=== PATIENT | female | born 1990 | race Two or more races ===

== ENCOUNTER 2022-02-17 06:00 | Inpatient (IN) | payer OTHER ==
[~2022-02-17] VITALS: Ht 154.9 cm; Wt 73.5 kg
[2022-02-17 05:40] VITALS: BP 122/79
--- NOTE | 2022-02-17 06:00 | NUR ---
[facility] SWAB OBTAINED AT THIS TIME
--- NOTE | 2022-02-17 07:19 | NUR ---
ADMISSION NOTE PATIENT CAME IN UNIT AROUND 0535 AM. ACCOMPANIED BY 2 EMT PERSONNELS, VIA STRETCHER. PATIENT IS A/OX4. NO S/S OF APPARENT DISTRESS ON ROOM AIR. DENIES PAIN AT THIS TIME. PATIENT WISHES TO BE FULL CODE. NEW ID BAND ON PATIENT. L.AC #20G INTACT. BELONGINGS INVENTORIED AND SIGNED FOR. UP-TO-DATE WITH HER IMMUNIZATIONS. DENIES SMOKING AND ALCOHOL ABUSE. DENIES SI. PATIENT IN FOR ERCP TODAY BEEN NPO SINCE MIDNIGHT, CONSENTS SIGNED. AWAITING FOR DOCTOR'S ORDERS. ENDORSED TO ANI FOR CONTINUITY OF CARE. V/S FOLLOWS: 122/79, HR-63, SATURATION 99% IN ROOM AIR, T-98.2. WT. 162 LBS AND IS 5'1".
--- NOTE | 2022-02-17 07:35 | NUR ---
MS RN NOTES RECEIVED PATIENT AWAKE IN BED. PATIENT IS ALERT AND ORIENTED TIMES 4. NO PAIN NOTED. NO SOB NOTED. NO DISTRESS NOTED. ON ROOM AIR AND TOLERATING WELL. ABLE TO MAKE NEEDS KNOWN. AMBULATORY AND ABLE TO MAKE NEEDS KNOWN. NPO FOR SURGERY OF ERCP THIS MORNING. IV ACCESS ON THE LAC MARY 20 INTACT. ALL NEEDS ATTENDED. ALL SAFETY MEASURES IN PLACE. BED LOCKED I THE LOWEST POSITION. CALL LIGHT AND TABLE IN EASY REACH. SIDE RAILS UP TIMES 2. WILL GRETTA NUE TO MONITOR.
[2022-02-17 08:00] VITALS: BP 115/71
--- NOTE | 2022-02-17 09:35 | NUR ---
RN NOTES PATIENT LEFT UNIT AT 0937 FOR SURGERY.
[2022-02-17] MEDS ORDERED: IOHEXOL 50 ML IV ONE (10:03)
[2022-02-17] MEDS ORDERED: ANESTHESIA TRAY IN PYXIS 1 EA TRAY MC ONE (10:03)
[2022-02-17] MEDS ORDERED: INDOMETHACIN 50 MG SUPP.RECT ONE (10:15)
[2022-02-17] MEDS ORDERED: SCOPOLAMINE PATCH 1 MG/72HR TD ONE ×2 (11:15)
--- NOTE | 2022-02-17 12:00 | NUR ---
RN NOTES PATIENT ARRIVED UNIT AT 1200. NO PAIN NOTED. NO SOB NOTED. NO DISTRESS NOTED. VITAL SIGNS IN NORMAL RANGES, WILL CONTINUE TO MONITOR.
[2022-02-17] MEDS ORDERED: ONDANSETRON HCL/PF 4 MG/2 ML VIAL IVP PRN (15:30)
[2022-02-17] MEDS ORDERED: MENTHOL/CETYLPYRD (CEPACOL) 1 LOZ LOZENGE PO PRN (15:30)
[2022-02-17] MEDS ORDERED: MAGNESIUM HYDROXIDE 30 ML UDC PO PRN (15:30)
[2022-02-17 16:00] VITALS: BP 113/71
[2022-02-17 18:21] LABS: BASOPHILS % (AUTO) 0.4 % (0.0-2.0); HEMATOCRIT 42 % (33-45); HEMOGLOBIN 13.7 g/dL (11.5-14.8); LYMPHOCYTES # (AUTO) 0.6 K/uL (0.8-4.8); LYMPHOCYTES % (AUTO) 10.4 % (20.0-44.0); MEAN CORPUSCULAR HGB CONC 33 g/dl (31.0-36.0); MEAN CORPUSCULAR VOLUME 86 fL (82-100); MONOCYTES # (AUTO) 0.1 K/uL (0.1-1.30); MONOCYTES % (AUTO) 1.7 % (2.0-12.0); NEUTROPHILS % (AUTO) 87.5 % (43.0-81.0); PLATELET COUNT (AUTO) 252 K/uL (150-450); RED BLOOD CELL COUNT(AUTO) 4.85 MIL/uL (4.0-5.2); WHITE BLOOD COUNT (AUTO) 5.7 K/uL (4.3-11.0)
[2022-02-17 18:50] LABS: ALBUMIN 3.2 g/dL (3.4-5.0); BILIRUBIN,TOTAL 3.3 mg/dL (0.2-1.0); CALCIUM, SERUM 8.6 mg/dL (8.5-10.1); CREATININE 0.7 mg/dL (0.6-1.3); POTASSIUM 3.6 mmol/L (3.5-5.1); TOTAL PROTEIN, SERUM 7.9 g/dL (6.4-8.2)
--- NOTE | 2022-02-17 19:30 | NUR ---
MS RN OPENING NOTE RECEIVED PATIENT IN BED WITH 1 VISITOR AT BEDSIDE. A/OX4. NO S/S OF APPARENT DISTRESS. AND DENIES PAIN AT THIS TIME. NO IV FLUIDS RUNNING AT THIS TIME. ORIENTED AND ENCOURAGED WITH THE USE OF CALL LIGHT. SAFETY IN PLACE. WILL CONTINUE WITH PLAN OF CARE FOR PATIENT.
--- NOTE | 2022-02-17 19:45 | NUR ---
MS RN CLOSING NOTES PATIENT AWAKE IN BED. AT BED SIDE.PATIENT IS ALERT AND ORIENTED TIMES 4. NO PAIN NOTED. NO SOB NOTED. NO DISTRESS NOTED. ON ROOM AIR AND TOLERATING WELL. ABLE TO MAKE NEEDS KNOWN. AMBULATORY AND ABLE TO MAKE NEEDS KNOWN. NPO FOR SURGERY TOMORROW. IV ACCESS ON THE LAC MARY 20 INTACT. ALL NEEDS ATTENDED. ALL DUE MEDS GIVEN ORDERED.ALL SAFETY MEASURES IN PLACE. BED LOCKED IN THE LOWEST POSITION. CALL LIGHT AND TABLE IN EASY REACH. SIDE RAILS UP TIMES 2. WILL ENDORSE FOR DIPIKA..
[2022-02-17 20:15] VITALS: BP 108/70
--- NOTE | 2022-02-17 22:40 | NUR ---
RN NOTES DR. TALAVERA CALLED AND GAVE TELEPHONE ORDER FOR THIS PATIENT , PATIENT WILL HAVE LAPAROSCOPIC CHOLECYSTECTOMY POSSIBLE OPEN TOMORROW, ORDER NOTED AND CARRIED OUT
--- NOTE | 2022-02-17 22:51 | NUR ---
MS RN NOTE CONSENT OBTAINED FOR LAP TOVA POSS OPEN, AT THIS TIME.
[2022-02-18 07:02] LABS: BASOPHILS % (AUTO) 0.2 % (0.0-2.0); EOSINOPHILS % (AUTO) 0.7 % (0.0-6.0); HEMATOCRIT 39 % (33-45); HEMOGLOBIN 12.9 g/dL (11.5-14.8); LYMPHOCYTES # (AUTO) 1.4 K/uL (0.8-4.8); LYMPHOCYTES % (AUTO) 20.9 % (20.0-44.0); MEAN CORPUSCULAR HGB CONC 33 g/dl (31.0-36.0); MEAN CORPUSCULAR VOLUME 86 fL (82-100); MONOCYTES # (AUTO) 0.5 K/uL (0.1-1.30); MONOCYTES % (AUTO) 7.5 % (2.0-12.0); NEUTROPHILS # (AUTO) 4.8 K/uL (1.8-8.9); NEUTROPHILS % (AUTO) 70.7 % (43.0-81.0); PLATELET COUNT (AUTO) 234 K/uL (150-450); WHITE BLOOD COUNT (AUTO) 6.8 K/uL (4.3-11.0)
--- NOTE | 2022-02-18 07:30 | NUR ---
MS RN OPENING NOTES: RECEIVED PATIENT IN BED AWAKE, A/OX4. NO S/S OF SOB OR ACUTE DISTRESS AT THE MOMENT, ON RA TOLERATING WELL. PT DENIES PAIN AT THIS TIME. IV ACCESS LAC# 20, SL, PATENT. SAFETY MEASURES IN PLACE, HOB ELEVATED AND LOCKED AT LOWEST POSITION, SIDERAILS UP X2, CALL LIGHT AND TABLE WITHIN REACH, WILL CONTINUE TO MONITOR.
--- NOTE | 2022-02-18 07:34 | NUR ---
MS RN NOTE CLOSING NEEDS ATTENDED. ENDORSED TO JORGE VILLAVICENCIO FOR CONTINUITY OF CARE.
[2022-02-18 07:42] LABS: BILIRUBIN,DIRECT 1.7 mg/dL (0.0-0.2); BILIRUBIN,TOTAL 3.1 mg/dL (0.2-1.0); CALCIUM, SERUM 8.5 mg/dL (8.5-10.1); CREATININE 0.7 mg/dL (0.6-1.3); POTASSIUM 3.3 mmol/L (3.5-5.1); TOTAL PROTEIN, SERUM 7.3 g/dL (6.4-8.2)
[2022-02-18] MEDS: PANTOPRAZOLE 40 MG TABLET.DR PO SCH (08:26)
[2022-02-18 08:27] VITALS: BP 112/63
[2022-02-18] MEDS ORDERED: LIDOCAINE 1% INJ 50 ML MDV IJ ONE ×2 (10:58→11:01)
[2022-02-18] MEDS ORDERED: BUPIVACAINE MPF 0.5% W/EPI INJ 30 ML VIAL ONE (10:59)
[2022-02-18] MEDS ORDERED: POTASSIUM CHLORIDE 20 MEQ TAB.PRT.SR PO SCH (11:00)
--- NOTE | 2022-02-18 11:00 | NUR ---
MS RN NOTES: PT TRANSPORTED TO OR VIA BED. PT STABLE AND VS WNL, CONSENTS SIGNED, CHECKLIST DONE.
[2022-02-18] MEDS ORDERED: HYDROMORPHONE INJ 2 MG/ML DISP.SYRIN ONE (11:34)
[2022-02-18] MEDS ORDERED: FENTANYL PF 250MCG/5ML AMPUL ONE (11:34)
[2022-02-18] MEDS ORDERED: MIDAZOLAM HCL 2 MG/2ML VIAL ONE (11:34)
[2022-02-18] MEDS ORDERED: ROCURONIUM BROMIDE 50 MG/5 ML ONE (11:35)
[2022-02-18] MEDS ORDERED: FAMOTIDINE/PF INJ 20 MG/2 ML VIAL IV ONE (11:35)
[2022-02-18] MEDS ORDERED: GLYCOPYRROLATE 0.2 MG/ML VIAL ONE ×2 (12:10→12:11)
[2022-02-18] MEDS ORDERED: BACITRACIN ZINC OINT (15 GM) 15 GM TUBE TP ONE (12:44)
--- NOTE | 2022-02-18 14:05 | NUR ---
MS RN NOTES: RECEIVED PT FROM OR, AWAKE. THREE ABDOMINAL INCISIONS WITH DRY, INTACT DRESSINGS NOTED. VITALS WNL, BP- 128/76, TEMP- 98.2, HR- 66, O2 SAT - 99%. PT HAS NO S/S OR SOB OR ACUTE DISTRESS, C/O PAIN 01/20, WILL MEDICATE ORDERED. SAFETY MEASURES IN PLACE, CALL LIGHT WITHIN REACH.
[2022-02-18] MEDS: HYDROCODONE/APAP 5/325MG TABLET PO PRN ×2 (14:06→18:31)
[2022-02-18] MEDS: ACETAMINOPHEN 325 MG TABLET PO SCH ×2 (15:00→23:21)
[2022-02-18] MEDS: IBUPROFEN 400 MG TABLET PO SCH ×2 (15:00→23:00)
[2022-02-18] MEDS: MORPHINE SULFATE INJ 2 MG/ML DISP.SYRIN IV PRN ×2 (15:16→19:25)
[2022-02-18 15:52] VITALS: BP 119/74
--- NOTE | 2022-02-18 16:30 | NUR ---
MS RN NOTES: PT SPOKE TO DR HERMOSILLO ABOUT PANCREATIC STENT REMOVAL. PER MD, PT WILL HAVE TO BE SCHEDULED FOR 02/19/2022. RN CALLED SURGERY DEPT, SPOKE TO STAFF, VERBALIZED SCHEDULE ORDER FROM MD WITH COMPLETE PT INFO. SURGERY STAFF ACKNOWLEDGED VERBAL ORDER.
[2022-02-18] MEDS: GABAPENTIN 300 MG CAPSULE PO SCH ×2 (16:44→23:21)
--- NOTE | 2022-02-18 19:42 | NUR ---
RN OPENING NOTE PATIENT AWAKE IN BED. PARTNER AT BEDSIDE. NO S/S OF DISTRESS, BREATHING WITHOUT DIFFICULTY ON ROOM AIR. LAC #20 SL INTACT AND PATENT. SAFETY MEASURES IN PLACE: RAILS UP X2, BED LOCKED AND AT LOWEST POSITION, CALL CARNEY WITHIN REACH. WILL CONTINUE TO MONITOR PATIENT.
[2022-02-18 20:00] VITALS: BP 108/69
--- NOTE | 2022-02-19 06:45 | NUR ---
RN CLOSING NOTE PATIENT ASLEEP IN BED. A/OX4. NO S/S OF DISTRESS, BREATHING WITHOUT DIFFICULT ON ROOM AIR. LAC #20 SL INTACT AND PATENT. SAFETY MEASURES IN PLACE: BED AT LOWEST POSITION, AND LOCKED, RAILS UP X2, CALL CARNEY WITHIN REACH. WILL ENDORSE TO NEXT SHIFT FOR DIPIKA.
[2022-02-19] MEDS: MORPHINE SULFATE INJ 2 MG/ML DISP.SYRIN IV PRN ×3 (06:59→14:14)
[2022-02-19] MEDS: IBUPROFEN 400 MG TABLET PO SCH ×3 (07:00→22:03)
[2022-02-19] MEDS: GABAPENTIN 300 MG CAPSULE PO SCH ×3 (07:00→22:03)
[2022-02-19] MEDS: ACETAMINOPHEN 325 MG TABLET PO SCH ×4 (07:00→19:57)
--- NOTE | 2022-02-19 07:35 | NUR ---
MS RN OPENING NOTES: RECEIVED PATIENT IN BED AWAKE, A/OX4. NO S/S OF SOB OR ACUTE DISTRESS AT THE MOMENT, ON RA TOLERATING WELL. PT DENIES PAIN AT THIS TIME. IV ACCESS LAC# 20, SL, PATENT. PT KEPT NPO FOR PROCEDURE. SAFETY MEASURES IN PLACE, HOB ELEVATED AND LOCKED AT LOWEST POSITION, SIDERAILS UP X2, CALL LIGHT AND TABLE WITHIN REACH, WILL CONTINUE TO MONITOR.
[2022-02-19 08:00] VITALS: BP 115/79
[2022-02-19 08:19] LABS: BASOPHILS % (AUTO) 0.6 % (0.0-2.0); EOSINOPHILS % (AUTO) 0.8 % (0.0-6.0); HEMATOCRIT 39 % (33-45); HEMOGLOBIN 12.9 g/dL (11.5-14.8); LYMPHOCYTES # (AUTO) 0.8 K/uL (0.8-4.8); LYMPHOCYTES % (AUTO) 13.8 % (20.0-44.0); MEAN CORPUSCULAR HGB CONC 33 g/dl (31.0-36.0); MEAN CORPUSCULAR VOLUME 87 fL (82-100); MONOCYTES # (AUTO) 0.1 K/uL (0.1-1.30); MONOCYTES % (AUTO) 1.4 % (2.0-12.0); NEUTROPHILS # (AUTO) 4.8 K/uL (1.8-8.9); NEUTROPHILS % (AUTO) 83.4 % (43.0-81.0); PLATELET COUNT (AUTO) 205 K/uL (150-450); RED BLOOD CELL COUNT(AUTO) 4.45 MIL/uL (4.0-5.2); WHITE BLOOD COUNT (AUTO) 5.8 K/uL (4.3-11.0)
[2022-02-19 08:37] LABS: ALBUMIN 3.1 g/dL (3.4-5.0); BILIRUBIN,DIRECT 1.5 mg/dL (0.0-0.2); CALCIUM, SERUM 8.6 mg/dL (8.5-10.1); CREATININE 0.8 mg/dL (0.6-1.3); TOTAL PROTEIN, SERUM 7.6 g/dL (6.4-8.2)
--- NOTE | 2022-02-19 08:48 | NUR ---
MS RN NOTE: RN CALLED SURGERY TO ASK ABOUT PT SURGERY SCHEDULE FOR 02/19/2022. PER SURGERY STAFF, SCHEDULING STAFF WILL ARRIVE @ 0900, RN WILL CALL BACK.
[2022-02-19 08:56] LABS: POTASSIUM 3.3 mmol/L (3.5-5.1)
[2022-02-19] MEDS: PANTOPRAZOLE 40 MG TABLET.DR PO SCH (09:49)
[2022-02-19] MEDS ORDERED: POTASSIUM CHLORIDE 20 MEQ POWDER PACKET PO SCH (10:00)
[2022-02-19] MEDS ORDERED: ANESTHESIA TRAY IN PYXIS 1 EA TRAY MC ONE (13:45)
[2022-02-19] MEDS ORDERED: IBUP-1953 PO (14:17)
[2022-02-19] MEDS ORDERED: GABA300C PO (14:17)
--- NOTE | 2022-02-19 16:05 | NUR ---
MS RN NOTES: PT TEMP 102.1, ANTIPYRETIC GIVEN ALONG WITH OTHER COOLING MEASURES, WILL CONT TO MONITOR VS.
--- NOTE | 2022-02-19 17:30 | NUR ---
MS RN NOTES: PT TRANSPORTED TO OR VIA BED BY OR STAFF, VS STABLE, ALL CONSENTS AND CHECKLIST COMPLETED AND SIGNED. CALLED PARTNER JASMEET TO MAKE HIM AWARE, PARTNER VERBALIZED UNDERSTANDING.
[2022-02-19] MEDS ORDERED: FENTANYL PF 100MCG/2ML AMPUL ONE (18:36)
--- NOTE | 2022-02-19 19:40 | NUR ---
RN OPENING NOTES PT IN THE OR.
--- NOTE | 2022-02-19 19:48 | NUR ---
MS RN CLOSING NOTES: PT STILL IN SURGERY, DC EXIT CARE COMPLETED, ENDORSED TO PM SHIFT,
--- NOTE | 2022-02-19 19:57 | NUR ---
RN NOTES; PT CAME BACK FROM SURGERY,PT NOTED CHILLING AND SHAKING.V/S WAS TAKEN BP 130/71, P99, T101,O2SAT 98.PRN TYLENOL 650MG WAS GIVEN.PT AOX4 NO SIGN SOB AT THIS TIME.CONTINUE TO MONITOR.
[2022-02-19 20:00] VITALS: BP 130/71
[2022-02-19] MEDS: HYDROCODONE/APAP 5/325MG TABLET PO PRN (22:42)
[2022-02-20] MEDS: GABAPENTIN 300 MG CAPSULE PO SCH ×3 (06:05→23:00)
[2022-02-20] MEDS: IBUPROFEN 400 MG TABLET PO SCH ×3 (06:05→23:00)
--- NOTE | 2022-02-20 06:13 | NUR ---
RN CLOSING NOTE; PATIENT ASLEEP IN BED. A/OX4.ABLE TO VERBALIZE NEEDS,ALONZO WELL ON RM AIR.NO SOB/DISTRESS NOTED.DUE MEDS GIVEN ORDER.ALL NEEDS ATTENDED,IV ACCESS LAC 20G PATENT AND INTACT. SAFETY MEASURES IN PLACE: BED AT LOWEST POSITION, AND LOCKED, RAILS UP X2, CALL CARNEY WITHIN REACH. WILL ENDORSE TO NEXT SHIFT.
--- NOTE | 2022-02-20 07:20 | NUR ---
RN OPENING NOTES RECEIVED PATIENT IN BED, AWAKE, A/O X4, VERBALLY RESPONSIVE AND ABLE TO MAKE NEEDS KNOWN. STABLE ON ROOM AIR, NO SOB NOTED, BREATHING EVEN AND UNLABORED. NO C/O PAIN AT THIS TIME. NOTED WITH IV ACCESS ON LEFT AC #20 G, INTACT AND PATENT, SALINE LOCKED. SAFETY MEASURE IN PLACE. BED IN LOWEST AND LOCKED POSITION, SIDE RAILS UP X2, CALL LIGHT AND TABLE PLACED WITHIN EASY REACH. WILL CONTINUE TO MONITOR PATIENT.
[2022-02-20 08:00] VITALS: BP 94/63
[2022-02-20] MEDS: PANTOPRAZOLE 40 MG TABLET.DR PO SCH (08:26)
[2022-02-20 09:30] LABS: BASOPHILS % (AUTO) 0.3 % (0.0-2.0); EOSINOPHILS % (AUTO) 0.1 % (0.0-6.0); HEMATOCRIT 36 % (33-45); HEMOGLOBIN 12.2 g/dL (11.5-14.8); LYMPHOCYTES # (AUTO) 0.2 K/uL (0.8-4.8); LYMPHOCYTES % (AUTO) 3.5 % (20.0-44.0); MEAN CORPUSCULAR HGB CONC 34 g/dl (31.0-36.0); MEAN CORPUSCULAR VOLUME 86 fL (82-100); MONOCYTES # (AUTO) 0.1 K/uL (0.1-1.30); NEUTROPHILS # (AUTO) 5.5 K/uL (1.8-8.9); NEUTROPHILS % (AUTO) 94.1 % (43.0-81.0); PLATELET COUNT (AUTO) 134 K/uL (150-450); RED BLOOD CELL COUNT(AUTO) 4.23 MIL/uL (4.0-5.2); WHITE BLOOD COUNT (AUTO) 5.8 K/uL (4.3-11.0)
[2022-02-20 09:54] LABS: ALBUMIN 2.5 g/dL (3.4-5.0); BILIRUBIN,DIRECT 1.9 mg/dL (0.0-0.2); BILIRUBIN,TOTAL 3.3 mg/dL (0.2-1.0); CALCIUM, SERUM 8.1 mg/dL (8.5-10.1); CREATININE 0.8 mg/dL (0.6-1.3); TOTAL PROTEIN, SERUM 6.6 g/dL (6.4-8.2)
[2022-02-20 10:06] LABS: POTASSIUM 2.6 mmol/L (3.5-5.1)
--- NOTE | 2022-02-20 10:30 | NUR ---
RN NOTES RECEIVED CALL FROM LAB, PATIENT'S POTASSIUM IS 2.6. DR. MONACO MADE AWARE, WITH NEW ORDERS CARRIED OUT.
[2022-02-20] MEDS: POTASSIUM CHLORIDE 20 MEQ TAB.PRT.SR PO SCH ×2 (10:46→11:58)
[2022-02-20] MEDS: POTASSIUM CL. PREMIX PERIPHER. 50 ML IV SCH ×2 (10:50→12:11)
[2022-02-20] MEDS: MORPHINE SULFATE INJ 2 MG/ML DISP.SYRIN IV PRN ×2 (11:58→23:15)
--- NOTE | 2022-02-20 12:30 | NUR ---
RN NOTE PATIENT NOTED WITH CHILLS AND FEVER, WITH TEMP OF 100.7. DR. MONACO MADE AWARE WITH NEW ORDERS FOR BLOOD CULTURE AND START PATIENT ON ZOSYN 3.375 MG [id number]. ORDERS CARRIED OUT.
--- NOTE | 2022-02-20 12:33 | NUR ---
PATIENT FOUND ON R/A NO O2 IN USE. PATIENT IS AWAKE AND ORIENTED AND NO DISTRESS NOTED. Addendum: 02/20/22 at 1234 by DEON MCCLAIN RT Amended: Links added.
[2022-02-20] MEDS: ACETAMINOPHEN 325 MG TABLET PO PRN (12:55)
[2022-02-20] MEDS: PIPERACILLIN /TAZOBACTAM 3.375 G in IV D5W 50 ML IV SCH ×3 (13:06→23:14)
[2022-02-20] MEDS: ACETAMINOPHEN 325 MG TABLET PO SCH ×2 (15:00→23:00)
--- NOTE | 2022-02-20 15:00 | NUR ---
RN NOTES ACETAMINOPHEN 650 MG NOT ADMINISTERED, ACETAMOINOPHEN 650 MG GIVEN @1255 FOR ELEVATED TEMPERATURE.
[2022-02-20 16:09] VITALS: BP 88/52
--- NOTE | 2022-02-20 18:56 | NUR ---
RN CLOSING NOTES PATIENT IN BED, AWAKE, A/O X4, NO SIGNS OF ACUTE DISTRESS NOTED. STABLE ON ROOM AIR, BREATHING EVEN AND UNLABORED. IV ACCESS ON LEFT AC #20G INTACT AND PATENT, SALINE LOCKED.ALL DUE MEDS GIVEN, TAKEN WELL. SAFETY MEASURE IN PLACE. WILL ENDORSE TO NEXT SHIFT FOR CONTINUITY OF CARE.
[2022-02-20 20:00] VITALS: BP 91/55
--- NOTE | 2022-02-20 20:01 | NUR ---
RN OPENING NOTES PATIENT IN BED, AWAKE, A/O X4, NO SIGNS OF ACUTE DISTRESS NOTED. STABLE ON ROOM AIR, BREATHING EVEN AND UNLABORED. IV ACCESS ON LEFT AC #20G INTACT AND PATENT, SALINE LOCKED. SAFETY MEASURE IN PLACE. WILL CONTINUE TO MONITOR.
[2022-02-21] MEDS: ACETAMINOPHEN 325 MG TABLET PO PRN (00:34)
[2022-02-21] MEDS: PIPERACILLIN /TAZOBACTAM 3.375 G in IV D5W 50 ML IV SCH ×2 (06:05→12:17)
[2022-02-21 06:25] LABS: ALBUMIN 2.2 g/dL (3.4-5.0); BILIRUBIN,DIRECT 1.6 mg/dL (0.0-0.2); BILIRUBIN,TOTAL 2.4 mg/dL (0.2-1.0); CALCIUM, SERUM 7.9 mg/dL (8.5-10.1); CREATININE 0.7 mg/dL (0.6-1.3); POTASSIUM 4.1 mmol/L (3.5-5.1); TOTAL PROTEIN, SERUM 6.1 g/dL (6.4-8.2)
--- NOTE | 2022-02-21 06:39 | NUR ---
RN CLOSING NOTES PATIENT IN BED, AWAKE, A/O X4, NO SIGNS OF ACUTE DISTRESS NOTED. STABLE ON ROOM AIR, BREATHING EVEN AND UNLABORED. IV ACCESS WAS CHANGED FROM LAC TO R WRIST 22G INTACT AND PATENT, SALINE LOCKED. SAFETY MEASURE IN PLACE. PT HAD ONE EPISODE OF CHILLS PRN TYLENOL WAS GIVEN TEMPERATURE REMAINED WITHIN NORMAL LIMITS. PRN MORPHINE PROVIDED ONCE FOR ABDOMINAL PAIN TOLERATED WELL. WILL ENDORSE CARE TO DAY SHIFT NURSE.
[2022-02-21] MEDS: ACETAMINOPHEN 325 MG TABLET PO SCH ×2 (06:47→15:04)
[2022-02-21] MEDS: IBUPROFEN 400 MG TABLET PO SCH ×2 (06:47→15:04)
[2022-02-21] MEDS: GABAPENTIN 300 MG CAPSULE PO SCH ×2 (06:47→15:04)
[2022-02-21 06:55] LABS: BASOPHILS % (AUTO) 0.3 % (0.0-2.0); HEMATOCRIT 34 % (33-45); HEMOGLOBIN 11.4 g/dL (11.5-14.8); LYMPHOCYTES # (AUTO) 0.7 K/uL (0.8-4.8); LYMPHOCYTES % (AUTO) 11.7 % (20.0-44.0); MEAN CORPUSCULAR HGB CONC 34 g/dl (31.0-36.0); MEAN CORPUSCULAR VOLUME 86 fL (82-100); MONOCYTES # (AUTO) 0.2 K/uL (0.1-1.30); MONOCYTES % (AUTO) 4.3 % (2.0-12.0); NEUTROPHILS # (AUTO) 4.6 K/uL (1.8-8.9); NEUTROPHILS % (AUTO) 82.7 % (43.0-81.0); PLATELET COUNT (AUTO) 79 K/uL (150-450); RED BLOOD CELL COUNT(AUTO) 3.94 MIL/uL (4.0-5.2); WHITE BLOOD COUNT (AUTO) 5.6 K/uL (4.3-11.0)
--- NOTE | 2022-02-21 07:30 | NUR ---
FOOD AND NUTRITION SERVICES SUPERVISOR OPENING NOTE RECEIVED PT AWAKE IN BED. A/O X4, ABLE TO MAKE NEEDS KNOWN. ON RA, TOLERATING WELL. NO SOB NOTED. NOT IN ANY SIGN OF RESPIRATORY DISTRESS. IV ACCESS IN R WRIST G #22 INTACT, AND PATENT. SAFETY MEASURES IN PLACE: BED IN LOWEST AND LOCKED POSITION, SIDE RAILS UPX2, AND CALL LIGHT WITHIN REACH. WILL CONTINUE TO MONITOR PT.
[2022-02-21] MEDS: PANTOPRAZOLE 40 MG TABLET.DR PO SCH (07:54)
[2022-02-21 08:00] VITALS: BP 94/64
[2022-02-21] MEDS ORDERED: LEVO500T90 PO (09:09)
--- NOTE | 2022-02-21 12:40 | NUR ---
RN NOTE RECEIVED A CALL FROM NICKI CRANE REPORTING CRITICAL LAB RESULT OF BLOOD CULTURE, PER NICKI IT'S POSITIVE BLOOD CULTURE, 1 BOTTLE OF SET, GRAM NEGATIVE RODS SEEN ON GRAM STAIN. CALLED DR. MONACO MADE AWARE OF BLOOD CULTURE RESULTS. PER DR. MONACO PT WILL BE OK ON LEVAQUIN ANTIBIOTIC WHICH HE PLACED ON HER DISCHARGE MEDICATION LISTS.
[2022-02-21 13:24] LABS: BAND % (MANUAL) 7 % (0.0-5.0); EOSINOPHILS % (MANUAL) 2 % (0-4); LYMPHOCYTES % (MANUAL) 12 % (16-48); METAMYELOCYTES % 1 % (0-0); MONOCYTES % (MANUAL) 4 % (0-11.0); NEUTROPHILS % (MANUAL) 74 (42-76)
--- NOTE | 2022-02-21 18:01 | NUR ---
RECREATION WORKER NOTE PT DISCHARGED TO HOME IN STABLE CONDITION. PT A/O X4, ABLE TO MAKE NEEDS KNOWN. ON RA, TOLERATING WELL WITH SPO2 98%. NO SOB NOTED. NOT IN ANY SIGN OF RESPIRATORY DISTRESS. VITAL SIGNS TAKEN, STABLE, AND RECORDED. PT'S SKIN INTACT. ON S/P LAPAROSCOPIC CHOLECYSTECTOMY AND S/P ERCP. DRESSING IN PLACE WITH NO BLEEDING OR DRAINAGE. DENIES PAIN OR DISCOMFORT AT THIS TIME. ALL BELONGINGS ACCOUNTED FOR. DISCHARGED INSTRUCTIONS AND HEALTH TEACHINGS GIVEN TO PT AND PT VERBALIZED UNDERSTANDING. IV ACCESS IN RIGHT WRIST G #22 REMOVED WITH NO ACTIVE BLEEDING NOTED. DRY PRESSURE DRESSING APPLIED AT SITE. PT LEFT THE UNIT AT 1725 AMBULATORY ACCOMPANIED BY HAYLIE PENNINGTON. PT WAS PICKED UP BY BOYFRIEND USING PRIVATE CAR. AND CHARGED NURSE AWARE OF DISCHARGED.
== END 2022-02-21 17:15 | disposition home or self-care (01) | DRG 263 ==
LOC: MED 06:00
PROVIDERS: ADMIT Nurse Practitioner Family; ATTEND Internal Medicine
PROC: 0FT44ZZ Resection of Gallbladder, Percutaneous Endoscopic Approach (ICD-10-PCS; principal; 2022-02-18)
DX: K80.67 Calculus of gallbladder and bile duct with acute and chronic cholecystitis with obstruction (principal); E66.9 Obesity, unspecified; Z68.30 Body mass index [BMI] 30.0-30.9, adult
CPT/HCPCS: 36415; 74018; 80048-TC; 80053-TC; 80076-TC; 82150-TC; 83690-TC; 83735-TC; 84132-TC; 84702-TC; 84703-TC; 85025-TC; 87040-TC; 87081-TC; 87186-TC; 94799-TC; C2625; G0378; J0330; J0690; J1100; J1170; J2250; J2270; J2405; J2543; J2704; J2765; J3010; J3480; J3490; J7030; J7060; J7120; Q9967